=== PATIENT | female | born 1975 | race African-American/Black ===

== ENCOUNTER 2023-04-18 11:05 | Emergency (ER) | payer OTHER, SELFPAY ==
--- OUTSIDE RECORDS SUMMARY | 2023-04-18 11:08 | XMS REPORT | Continuity of Care Document ---
:1975 Author Organization [facility] t Address [address] [place] [address] Care Team Providers Name Role Phone Mustapha Simmons Attending Clinician Mitchell Franklin Attending Clinician Payers Payer Name Policy Type Policy Number Effective Date Expiration Date Hira calix [employer] C1 [id number] [facility] Problems Condition Condition Condition Status Onset Resolution Last Treating Co mments Source Name Details Category Date Date Treatment Clinician Date S92.352G S92.352G Diagnosis Active 2014-062015-04-17 Memoria Active 06-14 05:59:00 l 04/14/2015 00:00: Ben tavares 00 [facility] UNK UNK Diagnosis Active 2014-062015-04-15 Mem oria Active 06-14 18:40:00 l 04/14/2015 00:00: Ben tavares 00 [facility] S92.352A S92.352A Diagnosis Active 2015-03-05 Memoria Active 03-02 08:35:00 l 03/02/2015 00:00: Ben tavares 00 [facility] Hematuria Hematuria Problem Active Com [facility] Anemia Anemia Diagnosis Active 2018-10-19 Me moria Active 02:01:56 l Diagnosis 10/19/2018 [facility] Anxiety Anxiety Problem Active 2018-10-19 Me moria Active 02:01:56 l Problem 10/19/2018 [facility] Palpitatio Palpitati Problem Active 2018-10-19 Memoria n on Active 02:01:56 l Problem 10/19/2018 [facility] Hypothyroi Hypothyro Diagnosis Active 2018-10-19 Memoria dism idism 02:01:56 l Active [employer] Diagnosis 10/19/2018 [facility] Insomnia Insomnia Problem Active 2018-10-19 Memoria Active 02:01:56 l Problem [employer] 10/19/2018 [facility] Essential Problem Active 2017-04-20 Me moria hypertensi Essential 03:05:25 l on hypertensi Ben n on Active Problem 04/20/2017 [facility] BMI BMI Diagnosis Active 2017-04-06 Mem oria 27.0-27.9, 27.0-27.9, 02:01:43 l adult adult [employer] Active Diagnosis 04/06/2017 [facility] Cephalgia Cephalgia Diagnosis Active 2015-10-26 Memoria Active 02:01:35 l Diagnosis [employer] 10/26/2015 [facility] Motion Motion Diagnosis Active 2015-10-26 Me moria sickness sickness 02:01:35 l Active [place] Diagnosis 10/26/2015 [facility] BMI BMI Diagnosis Active 2018-10-19 Mem oria 26.0-26.9, 26.0-26.9, 02:01:56 l adult adult [employer] Active Diagnosis 10/19/2018 [facility] Gastroesop Gastroeso Problem Active 2015-08-02 Memoria hageal phageal 01:19:37 l reflux reflux [place] disease disease (disorder) (disorder) Active Problem 08/02/2015 [facility] [place] Closed Closed Problem Active 2015-08-02 Naveed jessica fracture fracture 01:19:37 l of of [place] metatarsal metatarsal bone bone (disorder) (disorder) Active Problem 08/02/2015 5th metatarsal , left foot [facility] [place] Hypothyroi Hypothyro Problem Active 2015-08-02 Memoria dism idism 01:19:37 l (disorder) (disorder) He rmann Active Problem 08/02/2015 [facility] [place] LT FOOT LT FOOT Diagnosis Active 2015-07-01 Memoria Active 13:17:00 l SMR [place] Allergies, Adverse Reactions, Alerts Allergy Allergy Status Severity Reaction(s) Onset Inactive Treating Comm ents Source Name Type Date Date Clinician José Miguel Valdez Active Info Not Naveed jessica Available 5-13 l 00:00: Juan David 00 Social History Social Habit Start Date Stop Date Quantity Comments Source History of Tobacco [facility] - Use [facility] Sex Assigned At [facility] - [facility] children 2015-10-23 2015-10-23 [facility] Dulce nn 00:00:00 00:00:00 Social History 2015-04-16 2015-04-16 [facility] ermann 15:33:30 15:33:30 Smoking Status Start Date Stop Date Source Never Smoker [facility] Medications Ordered Filled Start Stop Current Ordering Indication Dosage Frequency Signature Comments Components Source Medication Medication Date Date Medication? Clinician (SIG) Name Name Iron Yes Jose 1 tablet Memoria 5-17 Ruben l 02:01: Juan David 57 Synthroid 2019 Yes Jose 1 tablet Naveed jessica 5-17 Ruben on an l 02:01: empty [place] David 56 stomach in the morning Bystolic Yes Jose 1 tablet Memor ia 5-17 Ruben l 02:01: [place] David 57 Zoloft 2019-0 Yes Jose 1 tablet Memoria 5-17 Ruben l 02:01: [place] David 57 Hemocyte-Pl 2018-0 Yes Jose 1 tablet Me moria us 6-28 Ruben l 02:01: [employer] 60 Synthroid 2018-0 Yes Jose 1 tablet Naveed jessica 6-25 Ruben on an l 00:00: empty [place] David 00 stomach in the morning Synthroid 2017 Yes Jose 1 tablet Naveed jessica 0-31 Ruben on an l 00:00: empty [employer] 00 stomach in the morning Synthroid 2017 Yes Jose 1 tablet Naveed jessica 0-31 Ruben on an l 00:00: empty [place] 00 stomach in the morning Synthroid 2016 Yes Jose 1 tablet Naveed jessica 5-23 Ruben on an l 02:01: empty [employer] 35 stomach in the morning Hemocyte-Pl Yes Jose 1 tablet Me moria us 5-23 Ruben l 02:01: Juan David 36 Bystolic Yes Joes 1 tablet Memor ia 5-23 Ruben l 02:01: [employer] 35 Lunesta Yes Jose 1 tablet Memori a 5-20 Ruben immediatel l 00:00: y before Juan David 00 bedtime Transderm-S Yes Jose apply 1 Mem oria endoscopy registered nurse 5-20 Ruben patch 4 l 00:00: hours Juan David 00 before travel, remove after 72 hours Esgic Yes Jose 1 tablet Memoria 5-20 Ruben as needed l 00:00: [place] 00 Transderm-S Yes Jose apply 1 Mem oria endoscopy registered nurse 5-20 Ruben patch 4 l 00:00: hours [place] 00 before travel, remove after 72 hours Lunesta Yes Jose 1 tablet Memori a 5-20 Ruben immediatel l 00:00: y before [place] 00 bedtime Glycopyrrol 2014-06 No 0.2 mg, Mem oria ate 06-17 Route: l 17:04: IVP, [place] 00 Q5Min, Dosing Weight 80.909, kg, PRN Bradycardi a, Start date: 04/17/15 11:04:00, Duration: 3 doses or times, Stop date: Limited # of times Promethazin 2014-06 No 6.25 mg, Me moria e 06-17 Route: l 17:04: IVPB, [place] 00 ONCE, Dosing Weight 80.909, kg, PRN Nausea & Vomiting, Start date: 04/17/15 11:04:00 Dexamethaso 2014-06 No 4 mg, Memor ia ne 06-17 Route: l 17:04: IVP, ONCE, [employer] 00 Dosing Weight 80.909, kg, PRN Nausea & Vomiting, Start date: 04/17/15 11:04:00 Ondansetron 2014-06 No 4 mg, Memor ia 06-17 Route: l 17:04: IVP, ONCE, [place] 00 Dosing Weight 80.909, kg, PRN Nausea & Vomiting, Start date: 04/17/15 11:04:00 Morphine 2014-06 No 2 mg, Memoria 06-17 Route: l 17:04: IVP, [employer] [place] 00 Q5Min, Dosing Weight 80.909, kg, PRN Pain Score 4-6, Start date: 04/17/15 11:04:00, Duration: 5 doses or times, Stop date: Limited # of times Fentanyl 2014-06 No 25 Memoria 1- microgram, l 17:04: Route: [employer] 00 IVP, Q5Min, Dosing Weight 80.909, kg, PRN Pain Score 4-6, Start date: 04/17/15 11:04:00, Duration: 4 doses or times, Stop date: Limited # of times Ketorolac 2014-06 No 30 mg, Memori a 06-17 Route: l 17:04: IVP, ONCE, [employer] 00 Dosing Weight 80.909, kg, Start date: 04/17/15 11:04:00, Duration: 1 doses or times, Stop date: 04/17/15 11:04:00 Hydromorpho 2014-06 No 0.5 mg, Mem oria ne 06-17 Route: l 17:04: IVP, [place] 00 Q5Min, Dosing Weight 80.909, kg, PRN Pain Score 7-10, Start date: 04/17/15 11:04:00, Duration: 4 doses or times, Stop date: Limited # of times Meperidine 2014-06 No 12.5 mg, Mem oria 06-17 Route: l 17:04: IVP, [employer] [place] 00 Q30Min, Dosing Weight 80.909, kg, PRN Other -See Comment, For shivering, Start date: 04/17/15 11:04:00, Duration: 2 doses or times, Stop date: Limited # of times Flumazenil 2014-06 No 0.2 mg, Naveed jessica 06-17 Route: l 17:04: IVP, PRN, [employer] 00 Dosing Weight 80.909, kg, PRN Benzodiaze pine Reversal, Initial dose, Start date: 04/17/15 11:04:00, Duration: 30 day, Stop date: 05/17/15 11:03:00 Naloxone 2014-06 No 0.04 mg, Memor ia 06-17 Route: l 17:04: IVP, [employer] [place] 00 Q2MIN, Dosing Weight 80.909, kg, PRN Narcotic Reversal, Start date: 04/17/15 11:04:00, Duration: 8 doses or times, Stop date: Limited # of times Diphenhydra 2014-06 No 12.5 mg, Me moria mine 06-17 Route: l 17:04: IVP, Drug [employer] [place] 00 form: INJ, Q6H, Dosing Weight 80.909, kg, PRN Itching, Start date: 04/17/15 11:04:00, Duration: 30 day, Stop date: 05/17/15 11:03:00 Oxycodone 2014-06 No 10 mg, Memori a 06-17 Route: PO, l 17:04: Drug form: [place] David 00 TAB, Q4H, Dosing Weight 80.909, kg, PRN Pain Score 7-10, Start date: 04/17/15 11:04:00, Duration: 30 day, Stop date: 05/17/15 11:03:00 Metoprolol 2014-06 No 1 mg, Memori a 06-17 Route: l 17:04: IVP, [employer] [place] 00 Q5Min, Dosing Weight 80.909, kg, PRN Other -See Comment, Start date: 04/17/15 11:04:00, Duration: 5 doses or times, Stop date: Limited # of times Hydralazine 2014-06 No 10 mg, Naveed jessica 06-17 Route: l 17:04: IVP, [employer] [place] 00 Q20Min, Dosing Weight 80.909, kg, PRN Elevated BP, Start date: 04/17/15 11:04:00, Duration: 2 doses or times, Stop date: Limited # of times ropivacaine 2014-06 No Dosing: Mem oria 1-13 Per Nerve l 16:45: Block Juan David 00 Dosing Order, Route: NERVE BLOCK, Start date: 04/17/15 10:45:00 400 mL, Dosing Weight 80.909, kg, Duration: 30 day, Stop date: 05/17/15 10:44:00 Acetaminoph 2014-06 No 1 tab, Naveed jessica en 325 MG / 06-17 Route: PO, l Hydrocodone 16:07: Dosing Herm reina Bitartrate 00 Weight 5 MG Oral 81.364, Tablet kg, Q4H, PRN Pain Score 4-6, Start date: 04/17/15 10:07:00, Duration: 30 day, Stop date: 05/17/15 10:06:00 ropivacaine 2014-06 No Dosing: Mem oria 1-13 Per Nerve l 15:41: Block [place] David 00 Dosing Order, Route: NERVE BLOCK, Start date: 04/17/15 9:41:00 400 mL, Dosing Weight 80.909, kg, Duration: 30 day, Stop date: 05/17/15 9:40:00 Ancef 2014-06 No 2 gm, Memoria 06-17 Route: l 15:09: IVPB, [place] David 00 ONCE, Dosing Weight 80.909, kg, Start date: 04/17/15 9:09:00, Duration: 1 doses or times, Stop date: 04/17/15 9:09:00 Calcium 2014-06 No 1,000 mL, Memor ia Chloride 06-17 Rate: 25 l 0.0014 15:08: ml/hr, Juan David MEQ/ML / 00 Infuse Potassium over: 40 Chloride hr, Route: 0.004 IV, Dosing MEQ/ML / Weight Sodium 80.909 kg, Chloride Total 0.103 Volume: MEQ/ML / 1,000, Sodium Start Lactate date: 0.028 04/17/15 MEQ/ML 9:08:00, Injectable Duration: Solution 30 day, Stop date: 05/17/15 9:07:00 Ancef 2014-06 No 2 gm, Memoria 06-17 Route: l 14:36: IVPB, [place] ONCE, Dosing Weight 80.909, kg, Start date: 04/17/15 8:36:00, Duration: 1 doses or times, Stop date: 04/17/15 8:36:00 Tramadol 2014-06 Yes 50 mg, PO, Mem oria 1-12 Q4-6H, PRN l 16:04: Pain, # 20 [employer] [place] 00 tab, 0 Refill(s) Reglan 2014-06 No 10 mg, Memoria 0- Route: l 18:45: IVP, Drug form: INJ, ONCE, Dosing Weight 81.364, kg, Start date: 03/05/15 13:45:00, Stop date: 03/05/15 13:45:00 Ropivacaine 2014-06 No Route: Naveed jessica hydrochlori 0-01 NERVE l de 2 MG/ML 18:00: BLOCK, Dulce nn Injectable 00 Dosing Solution Weight [Naropin] 81.364, kg, Continuous , Start date: 03/05/15 13:00:00 Phenergan 2014-06 No 12.5 mg, Naveed jessica 0-01 Route: l 17:45: IVPB, [employer] [place] 00 ONCE, Dosing Weight 81.364, kg, Start date: 03/05/15 12:45:00, Stop date: 03/05/15 12:45:00 Acetaminoph 2014-06 No 1 tab, Naveed jessica en 325 MG / 0-01 Route: PO, l Hydrocodone 17:39: kg, Q4H, He rmann Bitartrate 00 PRN Pain 5 MG Oral Score 4-6, Tablet Start date: 03/05/15 12:39:00, Duration: 30 day, Stop date: 04/04/15 12:38:00 Fentanyl 2014-06 No 50 Memoria 0-01 microgram, l 17:28: Route: [employer] [place] 00 IVP, Q5Min, Dosing Weight 81.364, kg, PRN Pain Score 7-10, Start date: 03/05/15 12:28:00, Duration: 2 doses or times, Stop date: Limited # of times Hydromorpho 2014-06 No 0.5 mg, Mem oria ne 0-01 Route: l 17:28: IVP, [place] 00 Q5Min, Dosing Weight 81.364, kg, PRN Pain Score 7-10, Start date: 03/05/15 12:28:00, Duration: 4 doses or times, Stop date: Limited # of times Ondansetron 2014-06 No 4 mg, Memor ia 0-01 Route: l 17:28: IVP, ONCE, [place] David 00 Dosing Weight 81.364, kg, PRN Nausea & Vomiting, Start date: 03/05/15 12:28:00 Naloxone 2014-06 No 0.04 mg, Memor ia 0-01 Route: l 17:28: IVP, [place] 00 Q2MIN, Dosing Weight 81.364, kg, PRN Narcotic Reversal, Start date: 03/05/15 12:28:00, Duration: 8 doses or times, Stop date: Limited # of times Meperidine 2014-06 No 12.5 mg, Mem oria 0-01 Route: l 17:28: IVP, [place] David 00 Q30Min, Dosing Weight 81.364, kg, PRN Other -See Comment, For shivering, Start date: 03/05/15 12:28:00, Duration: 2 doses or times, Stop date: Limited # of times Flumazenil 2014-06 No 0.2 mg, Naveed jessica 0 Route: l 17:28: IVP, PRN, [place] 00 Dosing Weight 81.364, kg, PRN Benzodiaze pine Reversal, Initial dose, Start date: 03/05/15 12:28:00, Duration: 30 day, Stop date: 04/04/15 12:27:00 Oxycodone 2014-06 No 5 mg, Memoria 0- Route: PO, l 17:28: Drug form: [employer] [place] 00 TAB, Q4H, Dosing Weight 81.364, kg, PRN Pain Score 4-6, Start date: 03/05/15 12:28:00, Duration: 30 day, Stop date: 04/04/15 12:27:00 Acetaminoph 2014-06 No 1,000 mg, M emoria en 0 Route: l 17:28: IVPB, Drug form: INJ, ONCE, Dosing Weight 81.364, kg, PRN Pain Score 1-3, Start date: 03/05/15 12:28:00, Duration: 1 doses or times, Stop date: Limited # of times Ancef 2014-06 No Special Memoria 0 Instructio l 15:43: ns: Juan David 00 Surgical Prophylaxi s Only; For patients < 120 kg Synthroid 2014-06 Yes PO, Daily, Me moria 0-01 0 l 15:18: Refill(s) [employer] 00 nebivolol 5 2014-06 Yes 5 mg = 1 Me moria MG Oral 0-01 tab, PO, l Tablet 15:18: Daily, # [place] [Bystolic] 00 30 tab, 0 Refill(s) Hemocyte 2014-06 Yes 324 mg, Memori a 0-01 PO, Daily, l 15:18: 0 [employer] 00 Refill(s) Calcium 2014-06 No 1,000 mL, Memor ia Chloride 0 Rate: 25 l 0.0014 15:07: ml/hr, [employer] MEQ/ML / 00 Infuse Potassium over: 40 Chloride hr, Route: 0.004 IV, Dosing MEQ/ML / Weight Sodium 81.364 kg, Chloride Total 0.103 Volume: MEQ/ML / 1,000, Sodium Start Lactate date: 0.028 03/05/15 MEQ/ML 10:07:00, Injectable Duration: Solution 30 day, Stop date: 04/04/15 10:06:00 Zofran ODT 2013-06 Yes Jose 1 tablet Mem oria 0-06 Ruben on the l 00:00: tongue and [employer] 00 allow to dissolve for 2 doses Zofran ODT 2013-06 Yes Jose 1 tablet Mem oria 0-06 Ruben on the l 00:00: tongue and [place] David 00 allow to dissolve for 2 doses Xanax 2013-06 Yes Jose 1 tablet Memoria 0-03 Ruben l 00:00: [place] 00 Xanax 2013-06 Yes Jose 1 tablet Memoria 0-03 Ruben l 00:00: [employer] 00 Levothyroxi Levothyroxi No QD Levothyrox ne Sodium ne Sodium ine Sodium 25 MCG 25 MCG 25 MCG Vital Signs Vital Name Observation Time Observation Value Comments Source bmi 2021-05-06 13:40:00 24.96 kg/m2 [facility] oximetry 2021-05-06 13:40:00 96 % [facility] blood pressure 2021-05-06 13:40:00 172 mm[Hg] [facility] - systolic [facility] blood pressure 2021-05-06 13:40:00 94 mm[Hg] [facility] - diastolic [facility] height 2021-05-06 13:40:00 70 [in_i] [facility] weight 2021-05-06 13:40:00 174 [lb_av] [facility] temperature 2021-05-06 13:40:00 97.3 [degF] [facility] Weight 2018-10-15 15:15:00 [facility] [place] Height 2018-10-15 15:15:00 [facility] Heart Rate 2018-10-15 15:15:00 [facility] Diastolic (mm Hg) 2018-10-15 15:15:00 [facility] orial [place] Systolic (mm Hg) 2018-10-15 15:15:00 Naveed rial [place] Weight 2017-11-27 20:00:00 [facility] [place] Height 2017-11-27 20:00:00 [facility] [place] Temperature Oral (F) 2017-11-27 20:00:00 98.2 F [facility] [place] Heart Rate 2017-11-27 20:00:00 [facility] [employer] [place] Diastolic (mm Hg) 2017-11-27 20:00:00 Mem orial [employer] [place] Systolic (mm Hg) 2017-11-27 20:00:00 Naveed rial [employer] [place] Weight 2017-04-04 13:15:00 [facility] [place] Height 2017-04-04 13:15:00 [facility] [place] Heart Rate 2017-04-04 13:15:00 [facility] [employer] [place] Diastolic (mm Hg) 2017-04-04 13:15:00 Mem orial [place] Systolic (mm Hg) 2017-04-04 13:15:00 Naveed rial [employer] [place] Weight 2015-10-23 13:45:00 [facility] [employer] [place] Height 2015-10-23 13:45:00 [facility] [place] Diastolic (mm Hg) 2015-10-23 13:45:00 Mem orial [place] Systolic (mm Hg) 2015-10-23 13:45:00 Naveed rial [employer] [place] Systolic (mm Hg) 2015-04-17 17:30:00 Naveed rial [place] Diastolic (mm Hg) 2015-04-17 17:30:00 Mem orial [place] Respitory Rate 2015-04-17 16:30:00 Memori al [place] Systolic (mm Hg) 2015-04-17 16:30:00 Naveed rial [place] Diastolic (mm Hg) 2015-04-17 16:30:00 Mem orial [place] Systolic (mm Hg) 2015-04-17 16:15:00 Naveed rial [employer] [place] Diastolic (mm Hg) 2015-04-17 16:15:00 Mem orial [employer] [place] Respitory Rate 2015-04-17 16:15:00 Memori al [employer] [place] Respitory Rate 2015-04-17 16:00:00 Memori al [employer] [place] Weight 2015-04-17 13:25:00 [facility] [place] Height 2015-04-17 13:25:00 177.8 cm [facility] [place] BMI Calculated 2015-04-17 13:25:00 Memori al [place] Systolic (mm Hg) 2015-03-05 19:30:00 Naveed rial [place] Diastolic (mm Hg) 2015-03-05 19:30:00 Mem orial [employer] [place] Systolic (mm Hg) 2015-03-05 19:15:00 Naveed rial [employer] [place] Diastolic (mm Hg) 2015-03-05 19:15:00 Mem orial [place] Respitory Rate 2015-03-05 19:15:00 Memori al [place] Respitory Rate 2015-03-05 19:00:00 Memori al [employer] [place] Systolic (mm Hg) 2015-03-05 19:00:00 Naveed rial [place] Diastolic (mm Hg) 2015-03-05 19:00:00 Mem orial [employer] [place] Respitory Rate 2015-03-05 18:45:00 Memori al [place] Heart Rate 2015-03-04 21:17:00 [facility] Temperature Oral (F) 2015-03-04 21:17:00 97.9 F [facility] Weight 2015-03-04 21:16:00 [facility] Height 2015-03-04 21:16:00 177.8 cm [facility] BMI Calculated 2015-03-04 21:16:00 Arnaud rodrigez [place] Procedures Procedure Date / Time Performed Performing Clinician [facility] margret Open reduction of fracture 2015-03-05 05:00:00 [facility] [place] of metatarsal bone with internal fixation Liposuction of abdomen 2008-06-05 00:00:00 Elli ial [place] Myomectomy [facility] Total thyroidectomy [facility] Encounters Start End Encounter Admission Attending Care Care Encounter Source Date/Time Date/Time Type Type Clinicians Facility Department ID 2021-06-30 Outpatient [facility] [id number] Common 14:19:54 [id number] [facility] 2021-05-06 2021-05-06 OFFICE [facility] [id number] Co mmon 00:00:00 00:00:00 VISIT NEW Spir it PT LEVEL 3 - [facility] 2018-10-17 2018-10-17 Outpatient Chava Larsen [id number] [facility] 14:22:00 14:22:00 [facility] 2018-10-15 2018-10-15 Outpatient Chava Larsen [id number] [facility]inic 10:15:00 10:15:00 [facility] Practice 2017-11-27 2017-11-27 Outpatient Chava Larsen [id number] [facility] 15:00:00 15:00:00 [facility] Practice 2017-04-19 2017-04-19 Outpatient Chava Larsen [id number] [facility]Clinic 16:06:00 16:06:00 [facility] Practice 2017-04-04 2017-04-04 Outpatient Chava Larsen [id number] [facility]Clinic 08:15:00 08:15:00 [facility] Practice 2015-10-23 2015-10-23 BAD nullFlavo Chava [id number] Memoria 13:45:00 13:45:00 HEADACHES r Family [id number] l Practice [id number] Herm reina and [id number] [facility] 2015-10-23 2015-10-23 Outpatient Chava Larsen [id number] eClinic 08:45:00 08:45:00 [facility] and [facility] 2015-07-01 2015-07-31 OP Therapy nullFlavo [facility] [id number] Memoria 19:00:00 05:59:00 Patients r [place] 00 l [place] David 2015-07-01 2015-07-30 Outpatient Iris, [id number] 13:00:00 23:59:00 Mustapha [id number] [place] [id number] 2015-04-17 2015-04-[address]avo [facility] [id number] Memoria 11:51:00 17:50:00 Surgery r [place] l [facility] 2015-04-17 2015-04-17 [facility] [id number] 05:51:00 11:50:00 Mitchell G 2015-03-10 2015-03-10 xray nullFlavo Chava [id number] Memoria 21:49:00 21:49:00 r Family [id number] l Practice [id number] Herm reina and [id number] [facility] 2015-03-05 2015-03-[address]avo [facility] [id number] Memoria 13:34:00 21:13:00 Surgery r [place] 00 l [facility] 2015-03-05 2015-03-05 Outpatient Repgregory, [facility] [id number] 08:34:00 16:13:00 Mitchell G 00 2015-02-27 2015-02-27 FOOT Maki Larsen [id number] Memoria 15:30:00 15:30:00 JADA Brennan [id number] l Practice [id number] [facility] and [id number] [facility] Results Test Description Test Time Test Comments Results Result Comments Source HEMATOLOGY 2015-04-17 13:29:00 Test Item Value Reference Range Interpretation Comme nts MPV (test code = MPV) 11.5 7.4-10.4 [id number] 13:29:00 Test Item Value Reference Range Interpretation Comments RDW (test code = RDW) 12.9 11.5-14.5 [facility] SpringsPdtvcgfRZZDBUNHUS1431-48-53 13:29:00 Test Item Value Reference Range Interpretation Comments MCHC (test code = MCHC) 31.7 32.0-36.0 [facility]IA2481-05-74 13:29:00 Test Item Value Reference Range Interpretation Comments MCH (test code = MCH) 29.5 pg 27.0-31.0 [facility] HospitalXsqoodiYWRJQMMUDI6327-78-62 13:29:00 Test Item Value Reference Range Interpretation Comments Hgb (test code = Hgb) 12.3 12.0-16.0 [facility] HospitalFzaalttVPNQPMEFWS4727-99-28 13:29:00 Test Item Value Reference Range Interpretation Comments Hct (test code = Hct) 38.9 36.0-48.0 [facility] SpringsQrhjyesAVDJWFGBHK2759-92-35 13:29:00 Test Item Value Reference Range Interpretation Comments MCV (test code = MCV) 93.0 80.0-98.0 [facility] HospitalKsmwidsSCAYKQBHYV0836-28-59 13:29:00 Test Item Value Reference Range Interpretation Comments RBC (test code = RBC) 4.18 4.20-5.40 [facility] HospitalRhwwuhhXMWGJBRWLR2490-23-91 13:29:00 Test Item Value Reference Range Interpretation Comments WBC (test code = WBC) 5.4 3.7-10.4 [facility]tonhbjEPTGECUIRTIZV5820-48-30 13:29:00 Test Item Value Reference Range Interpretation Comments S Preg (test code = S Negative *NA*(04/17/15 Preg) 7:29 AM) [facility] SpringsUuxgolwUTESYSIXHW4746-61-03 13:29:00 Test Item Value Reference Range Interpretation Comments Monocytes # (test code = Monocytes #) 0.4 <=0.8 [place] [id number] 13:29:00 Test Item Value Reference Range Interpretation Comments Eosinophils # (test code = Eosinophils 0.1 <=0.5 #) [facility] SpringsZ[id number] 13:29:00 Test Item Value Reference Range Interpretation Comments Segs-Bands # (test code = Segs-Bands #) 3.3 1.5-8.1 [facility] [id number] 13:29:00 Test Item Value Reference Range Interpretation Comments Lymphocytes # (test code = Lymphocytes 1.5 1.0-5.5 #) [facility] SpringsQexsyaaJWKCQREDFE6725-47-09 13:29:00 Test Item Value Reference Range Interpretation Comments Basophils (test code = Basophils) 0.8 <=1.0 [facility] SpringsGusamyhJDCPIDTBEV0525-01-38 13:29:00 Test Item Value Reference Range Interpretation Comments Segs (test code = Segs) 61.9 45.0-75.0 [facility] SpringsLalqgosCJJHMWVOJQ6902-37-93 13:29:00 Test Item Value Reference Range Interpretation Comments Eosinophils (test code = Eosinophils) 2.5 <=4.0 [facility] [id number] 13:29:00 Test Item Value Reference Range Interpretation Comments Monocytes (test code = Monocytes) 7.3 2.0-12.0 [facility] Sprin[id number] 13:29:00 Test Item Value Reference Range Interpretation Comments Lymphocytes (test code = Lymphocytes) 27.5 20.0-40.0 [facility] [id number] 13:29:00 Test Item Value Reference Range Interpretation Comments Platelet (test code = Platelet) 199 133-450 [facility] [id number] 14:13:00 Test Item Value Reference Range Interpretation Comments Lymphocytes # (test code = Lymphocytes 1.6 1.0-5.5 #) [facility] [id number] 14:13:00 Test Item Value Reference Range Interpretation Comments Monocytes # (test code = Monocytes #) 0.5 <=0.8 [facility] [id number] 14:13:00 Test Item Value Reference Range Interpretation Comments Eosinophils # (test code = Eosinophils 0.2 <=0.5 #) [facility] [id number] 14:13:00 Test Item Value Reference Range Interpretation Comments Basophils (test code = Basophils) 0.4 <=1.0 [facility] [id number] 14:13:00 Test Item Value Reference Range Interpretation Comments Segs-Bands # (test code = Segs-Bands #) 3.4 1.5-8.1 [facility] [id number] 14:13:00 Test Item Value Reference Range Interpretation Comments Monocytes (test code = Monocytes) 8.2 2.0-12.0 [facility] SpringsDlppvpnVZQKUDEKTH9529-82-47 14:13:00 Test Item Value Reference Range Interpretation Comments Eosinophils (test code = Eosinophils) 3.3 <=4.0 [facility] SpringsVlnjbjlMVXAAFQNSJ5036-05-85 14:13:00 Test Item Value Reference Range Interpretation Comments Segs (test code = Segs) 60.5 45.0-75.0 [facility] SpringsNbjghkuLMCDWCNECM3064-94-75 14:13:00 Test Item Value Reference Range Interpretation Comments Lymphocytes (test code = Lymphocytes) 27.6 20.0-40.0 [facility] SpringsOywkzdnGDZURHQCCZ4618-35-76 14:13:00 Test Item Value Reference Range Interpretation Comments MPV (test code = MPV) 12.2 7.4-10.4 [facility] SpringsCiybsujNGSNZRMJFP3688-43-51 14:13:00 Test Item Value Reference Range Interpretation Comments Platelet (test code = Platelet) 156 133-450 [facility] [id number] 14:13:00 Test Item Value Reference Range Interpretation Comments MCHC (test code = MCHC) 32.0 32.0-36.0 [facility] SpringsTueqjlhSNUGLTFCTP2721-93-41 14:13:00 Test Item Value Reference Range Interpretation Comments RDW (test code = RDW) 13.2 11.5-14.5 [facility] SpringsHvhrsjmVOKRNFGVVL1777-37-16 14:13:00 Test Item Value Reference Range Interpretation Comments MCV (test code = MCV) 93.5 80.0-98.0 [facility] SpringsQakggutMAPTZSPLOT7285-29-90 14:13:00 Test Item Value Reference Range Interpretation Comments MCH (test code = MCH) 30.0 pg 27.0-31.0 [facility] [id number] 14:13:00 Test Item Value Reference Range Interpretation Comments Hgb (test code = Hgb) 12.3 12.0-16.0 [facility] [id number] 14:13:00 Test Item Value Reference Range Interpretation Comments Hct (test code = Hct) 38.3 36.0-48.0 [facility] [id number] 14:13:00 Test Item Value Reference Range Interpretation Comments RBC (test code = RBC) 4.10 4.20-5.40 [facility] [id number] 14:13:00 Test Item Value Reference Range Interpretation Comments WBC (test code = WBC) 5.6 3.7-10.[address] [facility] CenterRtcowsnFOFUOVNKFPGAR2621-54-26 22:05:00 Test Item Value Reference Range Interpretation Comments S Preg (test code = S Negative *NA*(03/04/15 Preg) 5:05 PM) [facility]
--- NOTE | 2023-04-18 12:25 | RAD REPORT ---
EXAM DESCRIPTION: RAD - Hand Left 3 View - 04/18/2023 12:15 pm CLINICAL HISTORY: PAIN COMPARISON: No comparisons FINDINGS/IMPRESSION: No acute fracture. No malalignment. No significant focal degenerative changes.
--- NOTE | 2023-04-18 12:32 | EDPHYS ---
Physician Documentation [facility] Name: Tammie Knight Age: 47 yrs Sex: Female : 1975 Arrival Date: 04/18/2023 Time: 11:05 Bed 18 Private MD: ED Physician Paul Tejada HPI: 04/18 11:13 This 47 yrs old Black Female presents to ER via Unassigned with complaints of Finger ec2 Injury. 11:13 Patient arrives today for evaluation of left index finger injury. States that she was ec2 walking and subsequently bumped a table while carrying heavy objects and injured her left pointer finger. Patient reports no bleeding, denies any nailbed injury. Denies any other injuries.. Historical: - Allergies: 11: No Known Allergies; iw - PMHx: 11: Hypothyroidism; iw - Immunization history:: Adult Immunizations unknown. - Social history:: Smoking status: unknown. ROS: 11:13 Constitutional: as per hpi ec2 Exam: 11:13 Constitutional: GEN: NAD Head: atraumatic Eyes: EOMI Ears: External ears are ec2 normal. CV: regular rate LUNGS: no respiratory distress ABD: non-distended SKIN: no evidence of rashes MSK: Left index finger with swelling noted, no nailbed injury, no subungual hematoma NEURO: moves all extremities equally Vital Signs: 11:14 BP 164 / 110; Pulse 103; Resp 16; Pulse Ox 100% on R/A; iw 12:32 BP 159 / 107; Pulse 107; Resp 18 S; Pulse Ox 99% on R/A; kc6 MDM: 11:08 Patient medically screened. ec2 11:13 Data reviewed:. ED course: Patient arrives today for evaluation of a left finger ec2 injury. Examination remarkable for MSK findings as noted above. Will obtain x-ray of the hand to assess for injury. Currently considering bony fracture, soft tissue contusion.. 12:31 ED course: Hand x-ray independently reviewed and interpreted by me, shows no bony ec2 fracture. Will discharge home, return precautions given.. 04/18 11:13 Order name: Hand Left 3 View XRAY; Complete Time: 12:31 ec2 Administered Medications: No medications were administered Disposition Summary: 04/18/23 12:32 Discharge Ordered Notes: Location: Home ec2 Condition: Stable ec2 Diagnosis - Contusion of finger without damage to nail ec2 Discharge Instructions: - Discharge Summary Sheet ec2 - Hand Contusion ec2 Forms: - Medication Reconciliation Form ec2 - Thank You Letter ec2 - Antibiotic Education ec2 - Prescription Opioid Use ec2 - Patient Portal Instructions ec2 - Leadership Thank You Letter ec2 Signatures: Dispatcher [employer] Amaris Jackson RN RN iw Campbell, Kaitlyn, RN RN kc6 Paul Tejada MD MD ec2
--- NOTE | 2023-04-18 12:32 | ER ---
Nurse's Notes [facility] Name: Tammie Knight Age: 47 yrs Sex: Female : 1975 Arrival Date: 04/18/2023 Time: 11:05 Bed 18 Private MD: Diagnosis: Contusion of finger without damage to nail Presentation: 04/18 11:12 Chief complaint: Patient states: got left index finger caught between sterile iw instrument bin and a table , is swollen and bruised, was sent for xray. Coronavirus screen: At this time, the client does not indicate any symptoms associated with coronavirus-19. Ebola Screen: Patient negative for fever greater than or equal to 101.5 degrees Fahrenheit, and additional compatible Ebola Virus Disease symptoms Patient denies exposure to infectious person. Patient denies travel to an Ebola-affected area in the 21 days before illness onset. No symptoms or risks identified at this time. Onset of symptoms was April 18, 2023. 11:12 Method Of Arrival: Ambulatory iw 11:12 Method Of Arrival: Ambulatory iw 11:12 Acuity: MARICARMEN 4 iw 11:25 Initial Sepsis Screen: Does the patient meet any 2 criteria? No. Patient's initial kc6 sepsis screen is negative. Does the patient have a suspected source of infection? No. Patient's initial sepsis screen is negative. Risk Assessment: Do you want to hurt yourself or someone else? Patient reports no desire to harm self or others. Historical: - Allergies: 11:14 No Known Allergies; iw - PMHx: 11:14 Hypothyroidism; iw - Immunization history:: Adult Immunizations unknown. - Social history:: Smoking status: unknown. Screenin:24 [facility] ED Fall Risk Assessment (Adult) History of falling in the last 3 months, kc6 including since admission No falls in past 3 months (0 pts) Confusion or Disorientation No (0 pts) Intoxicated or Sedated No (0 pts) Impaired Gait No (0 pts) Mobility Assist Device Used No (0 pt) Altered Elimination No (0 pt) Score/Fall Risk Level 0 - 2 = Low Risk. Abuse screen: Denies threats or abuse. Denies injuries from another. Nutritional screening: No deficits noted. Tuberculosis screening: No symptoms or risk factors identified. Assessment: 11:25 General: Appears in no apparent distress. comfortable, Behavior is calm, cooperative, kc6 appropriate for age. Pain: Complains of pain in left index finger. Neuro: Level of Consciousness is awake, alert, obeys commands, Oriented to person, place, time, situation, Appropriate for age. Cardiovascular: Capillary refill < 3 seconds. Respiratory: Airway is patent Trachea midline Respiratory effort is even, unlabored, Respiratory pattern is regular, symmetrical. GI: No signs and/or symptoms were reported involving the gastrointestinal system. : No signs and/or symptoms were reported regarding the genitourinary system. EENT: No signs and/or symptoms were reported regarding the EENT system. Derm: No signs and/or symptoms reported regarding the dermatologic system. Skin is intact, is healthy with good turgor, Skin is pink, warm \T\ dry. Musculoskeletal: No signs and/or symptoms reported regarding the musculoskeletal system. Circulation, motion, and sensation intact. Capillary refill < 3 seconds, Range of motion: intact in all extremities. 12:26 Reassessment: Patient appears in no apparent distress at this time. No changes from kc6 previously documented assessment. Patient and/or family updated on plan of care and expected duration. Pain level reassessed. Patient is alert, oriented x 3, equal unlabored respirations, skin warm/dry/pink. Vital Signs: 11:14 BP 164 / 110; Pulse 103; Resp 16; Pulse Ox 100% on R/A; iw 12:32 BP 159 / 107; Pulse 107; Resp 18 S; Pulse Ox 99% on R/A; kc6 ED Course: 11:06 Patient arrived in ED. rg4 11:08 Paul Tejada MD is Attending Physician. ec2 11:13 Triage completed. iw 11:24 Libby Larsen, MALISSA is Primary Nurse. kc6 11:25 Patient maintains SpO2 saturation greater than 95% on room air. kc6 11:25 Arm band placed on. kc6 11:26 Patient has correct armband on for positive identification. Bed in low position. Call kc6 light in reach. Side rails up X 1. Client placed on continuous cardiac and pulse oximetry monitoring. NIBP monitoring applied. 12:16 Hand Left 3 View XRAY In Process Unspecified. EDMS 12:48 No provider procedures requiring assistance completed. Patient did not have IV access kc6 during this emergency room visit. Administered Medications: No medications were administered Medication: 12:48 VIS not applicable for this client. kc6 Outcome: 12:32 Discharge ordered by . ec2 12:48 Discharged to home ambulatory, kc6 12:48 Condition: good 12:48 Discharge instructions given to patient, Instructed on discharge instructions, follow up and referral plans. Demonstrated understanding of instructions, follow-up care, 12:48 Patient left the ED. kc6 Signatures: Dispatcher [employer] Amaris Jackson RN RN iw Garcia, Rubi rg4 Libby Larsen RN RN kc6 Paul Tejada MD MD ec2 Corrections: (The following items were deleted from the chart) 11:15 11:14 BP 164 / 10; Pulse 103bpm; Resp 16bpm; Pulse Ox 100% RA; hiren maradiaga
[2023-04-18 12:55] VITALS: BP 159/107; O2SAT 99
== END 2023-04-18 12:48 | disposition home or self-care (01) ==
LOC: ER 11:05
DX: S60.022A Contusion of left index finger without damage to nail, initial encounter (principal)
CPT/HCPCS: 99284